=== PATIENT | female | born 1990 | race Caucasian/White ===

== ENCOUNTER 2017-05-14 19:17 | Emergency (ER) | payer MEDICAID ==
[2017-05-14 19:35] VITALS: BP 132/84
--- NOTE | 2017-05-14 20:11 | EDM.PDOC ---
ED HPI GENERAL MEDICAL PROBLEM - General Chief Complaint: ENT Problem Stated Complaint: TOOTHACHE Time Seen by Provider: 05/14/17 19:45 Source of Information: Reports: Patient - History of Present Illness INITIAL COMMENTS - FREE TEXT/NARRATIVE: Dental pain for months, the last 4 days, tooth pain. Reports unable to eat due to pain, tolerates fluids. Onset: Gradual Duration: Chronic, Getting Worse Location: Reports: Head Quality: Reports: Same as Previous Episode, Sharp, Throbbing Improves with: Reports: None Worsens with: Reports: None Context: Reports: Other (dental pain) Associated Symptoms: Reports: No Other Symptoms Treatments BIG DATA DEVELOPER: Reports: Acetaminophen, NSAIDS Left Upper Face Pain Score (Numeric/FACES): 8 - Related Data Allergies Allergy/AdvReac Type Severity Reaction Status Date / Time codeine Allergy Rash Verified 05/14/17 19:36 hydrocodone Allergy Rash Verified 05/14/17 19:36 latex Allergy Rash Verified 05/14/17 19:36 Home Meds: Home Meds Ibuprofen 200 mg PO ASDIRECTED PRN 05/14/17 [History] Past Medical History 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 previous lived in [place], [place].) ED ROS ENT - Review of Systems Review Of Systems: See Below Constitutional: Reports: No Symptoms, Other HEENT: Reports: Other (dental pain) Respiratory: Reports: No Symptoms Endocrine: Reports: No Symptoms GI/Abdominal: Reports: No Symptoms : Reports: No Symptoms Musculoskeletal: Reports: No Symptoms Skin: Reports: No Symptoms Neurological: Reports: No Symptoms Psychiatric: Reports: No Symptoms Hematologic/Lymphatic: Reports: No Symptoms Immunologic: Reports: No Symptoms ED EXAM, ENT - Physical Exam Exam: See Below Exam Limited By: No Limitations General Appearance: Alert, WD/WN, No Apparent Distress Eye Exam: Bilateral Eye: Normal Inspection Ears: Normal External Exam, Normal Canal, Normal TMs Nose: Normal Inspection, Normal Mucousa Mouth/Throat: Normal Lips, Dental Pain (pain to tooth #15), Dental Tenderness, Gum Swelling Head: Atraumatic, Normocephalic Neck: Normal Inspection, Supple, Non-Tender, Full Range of Motion Respiratory/Chest: No Respiratory Distress, Lungs Clear, Normal Breath Sounds Cardiovascular: Normal Peripheral Pulses, Regular Rate, Rhythm Course - Vital Signs Last Recorded V/S: Last Vital Signs Temp 37.2 C 05/14/17 19:41 Pulse 77 05/14/17 19:41 Resp 13 05/14/17 19:41 BP 132/84 05/14/17 19:41 Pulse Ox 100 05/14/17 19:41 Departure - Departure Time of Disposition: 19:45 Disposition: Home, Self-Care 01 Condition: Good Clinical Impression: Dental caries - Discharge Information Instructions: Dental Caries, [id number] Referrals: PCP,None [Primary Care Provider] - Forms: ED Department Discharge Care Plan Goals: dental pain tooth #15 -script Penicillin take as directed -script Tramadol as directed #15 soft diet, avoid crunchy foods, Referral to Dental Clinic return to Dentist if not improved or symptoms worsen.
== END 2017-05-14 20:21 | disposition home or self-care (01) ==
LOC: JP.ED 19:17
DX: K02.9 Dental caries, unspecified (principal); F17.210 Nicotine dependence, cigarettes, uncomplicated; Z98.51 Tubal ligation status; Z91.040 Latex allergy status; Z88.5 Allergy status to narcotic agent
CPT/HCPCS: 99283

== ENCOUNTER 2018-02-14 16:20 | Emergency (ER) | payer MEDICAID ==
[2018-02-14 16:47] VITALS: BP 128/80
--- NOTE | 2018-02-14 17:30 | EDM.PDOC ---
ED HPI GENERAL MEDICAL PROBLEM - General Chief Complaint: ENT Problem Stated Complaint: BLURRY VISION - RT EYE Time Seen by Provider: 02/14/18 17:12 Source of Information: Reports: Patient, Family, RN Notes Reviewed History Limitations: Reports: No Limitations - History of Present Illness INITIAL COMMENTS - FREE TEXT/NARRATIVE: 27-year-old female presents emergency department day complaint of blurry vision in her right eye, she states this started today seems to be about the same she has difficulty with the vision denies any trauma no fevers she does wear contact lenses however has not worn them for a couple of days - Related Data Allergies Allergy/AdvReac Type Severity Reaction Status Date / Time codeine Allergy Rash Verified 02/14/18 16:48 hydrocodone Allergy Rash Verified 02/14/18 16:48 latex Allergy Rash Verified 02/14/18 16:48 Home Meds: Home Meds Ibuprofen 200 mg PO ASDIRECTED PRN 05/14/17 [History] Past Medical History HEENT History: Reports: Impaired Vision 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 previous lived in [place], [place].) ED ROS GENERAL - Review of Systems Review Of Systems: See Below Constitutional: Reports: No Symptoms HEENT: Reports: Vision Change. Denies: Eye Discharge, Eye Pain ED EXAM GENERAL W FULL EYE - Physical Exam Exam: See Below Exam Limited By: No Limitations General Appearance: Alert, WD/WN, No Apparent Distress Eye Exam: Right Eye: Foreign Body (None noted), Globe Laceration (None noted), Vision Changes, Bilateral Eye: EOMI, Normal Fundi (No papilledema), Normal Inspection, PERRL Visual Acuity (R) 20/: 50 With Correction: Yes Eyelids: Bilateral: Normal Appearance Conjunctiva & Sclera: Bilateral: Normal Appearance Cornea Exam: Right: Normal Appearance Extraocular Movements: Bilateral: Intact Pupils: Normal Accommodation Pupillary Size: Bilateral: 6 mm Pupillary Reaction: Bilateral: Brisk Anterior Chamber: Bilateral: Normal Appearance Posterior Chamber: Bilateral: Normal Funduscopic Respiratory/Chest: No Respiratory Distress Course - Vital Signs Last Recorded V/S: Last Vital Signs Temp 96.2 F 02/14/18 16:48 Pulse 75 02/14/18 16:48 Resp 17 02/14/18 16:48 BP 128/80 02/14/18 16:48 Pulse Ox 98 02/14/18 16:48 Departure - Departure Time of Disposition: 17:30 Disposition: Home, Self-Care 01 Condition: Fair Clinical Impression: Blurry vision, right eye - Discharge Information Referrals: Silvio Pickett MD [Primary Care Provider] - Additional Instructions: Start the gentamicin drops as prescribed, please call and follow-up with your senior bi developer in the morning - Assessment/Plan Plan: Assessment Acuity = acute Site and laterality = right eye with blurry vision Etiology = unclear etiology Manifestations = none Location of injury = Home Lab values = none Plan I could not appreciate any acute abnormality I am going to cover her with gentamicin ophthalmic drops I will have her follow-up with her senior bi developer in the morning This note was dictated using [employer] voice recognition software please call with any questions on syntax or christine.
== END 2018-02-14 17:40 | disposition home or self-care (01) ==
LOC: JP.ED 16:20
DX: H53.8 Other visual disturbances (principal); F17.210 Nicotine dependence, cigarettes, uncomplicated; Z88.5 Allergy status to narcotic agent; Z91.040 Latex allergy status
CPT/HCPCS: 99284

== ENCOUNTER 2019-03-09 17:12 | Emergency (ER) | payer MEDICAID ==
[2019-03-09 17:28] VITALS: BP 136/83
[2019-03-09] MEDS: Sodium Chloride 0.9% 1,000 ML IV ONE (18:24)
--- NOTE | 2019-03-09 18:27 | EDM.PDOC ---
ED HPI GENERAL MEDICAL PROBLEM - General Chief Complaint: Gastrointestinal Problem Stated Complaint: NAUSEA/VOMITING,DIARRHEA Time Seen by Provider: 03/09/19 18:22 Source of Information: Reports: Patient History Limitations: Reports: No Limitations - History of Present Illness INITIAL COMMENTS - FREE TEXT/NARRATIVE: Patient presents describing diarrhea, nausea, occasional vomiting since Thursday, 06 March. Symptoms began with diarrhea and some pain associated with diarrhea. No particular exacerbating factors. No one else ill around her. The diarrhea has been variable sometimes she will have multiple stools within an hour. She gets some nausea and vomiting but the vomiting usually does not occur until 1900 hrs. or so. She had bilateral prophylactic mastectomies performed in mid October [address] Khan at [facility] surgery because of a strong family history of breast cancer. She had postoperative drains in place for almost 2 weeks but then they were removed. She used 2 courses of an outpatient oral antibiotic following the surgery but has not had any since. She recently underwent breast implant surgery at [facility] in [place] on 03 February. She called her surgeon today and he recommended that she come in to be checked for infection. She has taken Imodium as well as other OTC products to try to improve the diarrhea and nothing has helped. 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: Other Medication(s) (Imodium) Abdominal Pain Score (Numeric/FACES): 6 - Related Data Allergies Allergy/AdvReac Type Severity Reaction Status Date / Time codeine Allergy Rash Verified 03/09/19 17:25 hydrocodone Allergy Rash Verified 03/09/19 17:25 latex Allergy Rash Verified 03/09/19 17:25 Home Meds: Home Meds NK [No Known Home Meds] 03/09/19 [History] Past Medical History HEENT History: Reports: Impaired Vision 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: - Infectious Disease History Infectious Disease History: Reports: Chicken Pox - Past Surgical History Female Surgical History: Reports: Mastectomy, Tubal Ligation Other Female Surgeries/Procedures: mastectomy bilateral ah preventative Social & Family History - Tobacco Use Smoking Status *Q: Former Smoker Used Tobacco, but Quit: Yes Month/Year Tobacco Last Used: 2017 - Caffeine Use Caffeine Use: Reports: Coffee, Soda - Recreational Drug Use Recreational Drug Use: No - Living Situation & Occupation Living situation: Reports: with Significant Other, with Family (recently moved to [place], with SO and 2 children. previous lived in [place], [place].) ED ROS GENERAL - Review of Systems Review Of Systems: ROS reveals no pertinent complaints other than HPI. Cardiovascular: Reports: No Symptoms GI/Abdominal: Reports: Abdominal Pain, Diarrhea, Nausea, Vomiting ED EXAM, GI/ABD - Physical Exam Exam: See Below Text/Narrative:: She is seated upright on bed 5 in no distress. Conversant. Exam Limited By: No Limitations General Appearance: Alert, WD/WN, No Apparent Distress GI/Abdominal Exam: Abnormal Bowel Sounds (Very active bowel sounds), Other ( Mild epigastric tenderness on palpation.). No: Guarding, Rebound Psychiatric: Normal Affect Skin Exam: Warm, Dry, Intact, Normal Color, No Rash Course - Vital Signs Text/Narrative:: Patient will be given one liter of normal saline over one hour. We discussed the fact that most diarrhea is viral in origin and needs to run its course. I recommend yogurt and probiotics as well as avoiding dairy foods until diarrhea improves. Last Recorded V/S: Last Vital Signs Temp 36.3 C 03/09/19 17:30 Pulse 92 03/09/19 17:30 Resp 16 03/09/19 17:30 BP 136/83 03/09/19 17:30 Pulse Ox 98 03/09/19 17:30 - Orders/Labs/Meds Labs: Laboratory Tests 03/09/19 03/09/19 03/09/19 Range/Units 18:17 18:17 18: WBC 7.2 (4.5-11.0) K/uL RBC 5.22 (3.30-5.50) M/uL Hgb 15.0 (12.0-15.0) g/dL Hct 43.2 (36.0-48.0) % MCV 83 (80-98) fL MCH 29 (27-31) pg MCHC 35 (32-36) % Plt Count 222 (150-400) K/uL Neut % (Auto) 58 (36-66) % Lymph % (Auto) 24 (24-44) % [place] % (Auto) 12 H (2-6) % Eos % (Auto) 4 (2-4) % Baso % (Auto) 2 H (0-1) % Sodium 136 L (140-148) mmol/L Potassium 3.4 L (3.6-5.2) mmol/L Chloride 102 (100-108) mmol/L Carbon Dioxide 23 (21-32) mmol/L Anion Gap 14.4 H (5.0-14.0) mmol/L BUN 7 (7-18) mg/dL Creatinine 0.7 (0.6-1.0) mg/dL Est Cr Clr Drug Dosing 116.35 mL/min Estimated GFR (MDRD) > 60 (>60) Glucose 86 (74-106) mg/dL Calcium 8.8 (8.5-10.1) mg/dL Total Bilirubin 0.3 (0.2-1.0) mg/dL AST 26 (15-37) U/L ALT 21 (12-78) U/L Alkaline Phosphatase 74 (46-116) U/L C-Reactive Protein 1.85 H (0.0-0.3) mg/dL Total Protein 7.4 (6.4-8.2) g/dL Albumin 3.2 L (3.4-5.0) g/dL Globulin 4.2 H (2.3-3.5) g/dL Albumin/Globulin Ratio 0.8 L (1.2-2.2) Meds: Medications Discontinued Medications Generic Name Dose Route Start Last Admin Trade Name Freq PRN Reason Stop Dose Admin Sodium Chloride 1,000 mls @ 999 mls/hr 03/09/19 18:19 03/09/19 18:24 Normal Saline IV 03/09/19 19:19 999 mls/hr .BOLUS ONE Administration Departure - Departure Time of Disposition: 19:25 Disposition: Home, Self-Care 01 Condition: Good Clinical Impression: Diarrhea - Discharge Information Instructions: Diarrhea, Adult, [id number] Referrals: Silvio Pickett MD [Primary Care Provider] - Forms: ED Department Discharge Additional Instructions: Avoid dairy products until diarrhea improves. Try yogurt and probiotics. Return to ER if bloody diarrhea starts. You will probably feel sick for another 5 days. Recheck with primary care if symptoms don't improve in one week.
== END 2019-03-09 19:42 | disposition home or self-care (01) ==
LOC: JP.ED 17:12
DX: R19.7 Diarrhea, unspecified (principal); R11.2 Nausea with vomiting, unspecified; Z87.891 Personal history of nicotine dependence; Z88.5 Allergy status to narcotic agent; Z88.6 Allergy status to analgesic agent; Z91.040 Latex allergy status
CPT/HCPCS: 36415; 80053; 85025; 86140; 96360; 99284; J7030

== ENCOUNTER 2022-07-09 19:50 | Emergency (ER) | payer OTHER, MEDICAID ==
[2022-07-09 20:16] VITALS: BP 119/73; PULSE 97
[2022-07-09 21:56] LABS: ESTIMATED GFR 87 mL/min (>60)
== END 2022-07-09 22:42 | disposition home or self-care (01) ==
LOC: JP.ED 19:50
DX: R10.13 Epigastric pain (principal); R82.71 Bacteriuria; D72.829 Elevated white blood cell count, unspecified; F17.210 Nicotine dependence, cigarettes, uncomplicated; Z88.5 Allergy status to narcotic agent; Z91.040 Latex allergy status; Z88.8 Allergy status to other drugs, medicaments and biological substances; Z86.16 Personal history of COVID-19
CPT/HCPCS: 36415; 80053; 81001; 83690; 85025; 87086; 99284